=== PATIENT | male | born 1955 | race Hispanic/Latino ===

== ENCOUNTER 2018-06-25 11:48 | Emergency (ER) | payer OTHER ==
[~2018-06-25] VITALS: Ht 172.7 cm; Wt 103.4 kg
[~2018-06-25 11:48] MED LIST: ADULT ASPIRIN81 MG PO; ALLOPURINOL100 MG PO; FENOFIBRATE145 MG PO; FLOMAX0.4 MG PO; GLIMEPIRIDE2 MG PO; GLUCOPHAGE XL500 MG PO; HYDROCODON-ACE1 EA11 PO; LISINOPRIL-HCT1 EAC3 PO; MIRALAX17 GM; PEPCID40 MG PO; POTASSIUM CHLO10 MEQ PO; PRAVASTATIN SOD80 MG PO; PROTONIX40 MG/ML; RANITIDINE HCL75 MG PO; VICODIN ES TAB1 EACH; VISCOUS LIDOCAINE PO; Z.0.ALLOPURINOL300 M PO; Z.0.CELEBREX100 MG PO; Z.0.COLACE100 MG PO; Z.0.GLYBURIDE2.5 MG PO; Z.0.JANUVIA100 MG PO; Z.0.LASIX40 MG PO; Z.0.PRAVACHOL40 MG PO; Z.1.POTASSIUM CHLO10 PO
[2018-06-25 12:11] LABS: BASOPHILS % 0.4 % (0.0-1.0); EOSINOPHILS # (AUTO) 0.2 (0.0-0.4); EOSINOPHILS % 2.7 % (0.0-6.0); HEMATOCRIT 45.4 % (38.2-49.6); HEMOGLOBIN 15.2 g/dL (14.0-18.0); LYMPHOCYTES # (AUTO) 2.2 (1.0-3.2); LYMPHOCYTES % 25.9 % (18.0-39.1); MEAN CORPUSCULAR HEMOGLOBIN 26.9 pg (28-32); MEAN CORPUSCULAR HGB CONC 33.5 g/dL (31-35); MEAN CORPUSCULAR VOLUME 80.4 fL (81-99); MONOCYTES # (AUTO) 0.7 (0.2-0.8); MONOCYTES % 7.7 % (4.4-11.3); NEUTROPHILS # (AUTO) 5.3 (2.1-6.9); NEUTROPHILS % 63.1 % (38.7-80.0); PLATELET COUNT 161 x10e3/uL (140-360); RED BLOOD COUNT 5.65 x10e6/uL (4.3-5.7); RED CELL DISTRIBUTION WIDTH 14.1 % (11.7-14.4)
[2018-06-25 12:25] LABS: INR 1.43; PROTHROMBIN TIME 18.6 seconds (11.9-14.5)
[2018-06-25 12:26] LABS: PARTIAL THROMBOPLASTIN TIME 41.1 seconds (23.8-35.5)
[2018-06-25 12:30] LABS: ANION GAP 18.4 mmol/L (8-16); CALCIUM 9.9 mg/dL (8.4-10.2); CREATININE, SERUM 1.93 mg/dL (0.72-1.25); POTASSIUM 4.4 mmol/L (3.5-5.1)
[2018-06-25] MEDS ORDERED: SODIUM CHLORIDE 0.9% 1000ML 1,000 ML IV SCH (13:00)
[2018-06-25] MEDS ORDERED: INSULIN REGULAR, HUMAN 100 UNIT/1 ML 3ML VIAL SQ ONE (13:00)
[2018-06-25] MEDS ORDERED: HYDROMORPHONE 1MG/1ML INJ IV STA (13:05)
[2018-06-25 14:51] VITALS: BP 117/78
== END 2018-06-25 15:05 | disposition home or self-care (01) ==
LOC: ER 11:48
DX: M79.661 Pain in right lower leg (principal); I10 Essential (primary) hypertension; E11.9 Type 2 diabetes mellitus without complications; M10.9 Gout, unspecified; G89.29 Other chronic pain
CPT/HCPCS: 36415; 80048; 82948; 84550; 85025; 85610; 85730; 93971; 99284; J1170; J7030

== ENCOUNTER 2019-12-01 02:43 | Emergency (ER) | payer MEDICARE, OTHER ==
[~2019-12-01] VITALS: Ht 170.2 cm; Wt 96.2 kg
[2019-12-01] MEDS ORDERED: DIATRIZOATE MEGL/DIATRIZOA SOD 30 ML BTL PO ONE (03:03)
[2019-12-01 03:43] LABS: BASOPHILS % 0.3 % (0.0-1.0); EOSINOPHILS # (AUTO) 0.2 (0.0-0.4); EOSINOPHILS % 2.9 % (0.0-6.0); HEMATOCRIT 44.5 % (38.2-49.6); HEMOGLOBIN 14.3 g/dL (14.0-18.0); LYMPHOCYTES # (AUTO) 1.9 (1.0-3.2); LYMPHOCYTES % 26.4 % (18.0-39.1); MEAN CORPUSCULAR HEMOGLOBIN 26.7 pg (28-32); MEAN CORPUSCULAR HGB CONC 32.1 g/dL (31-35); MEAN CORPUSCULAR VOLUME 83.2 fL (81-99); MONOCYTES # (AUTO) 0.6 (0.2-0.8); MONOCYTES % 8.1 % (4.4-11.3); NEUTROPHILS # (AUTO) 4.4 (2.1-6.9); PLATELET COUNT 122 x10e3/uL (140-360); RED BLOOD COUNT 5.35 x10e6/uL (4.3-5.7); RED CELL DISTRIBUTION WIDTH 13.5 % (11.7-14.4)
[2019-12-01 04:05] LABS: ALBUMIN 3.9 g/dL (3.5-5.0); ALBUMIN/GLOBULIN RATIO 1.2 (0.8-2.0); ANION GAP 11.8 mmol/L (8-16); CALCIUM 9.2 mg/dL (8.4-10.2); CREATININE, SERUM 1.33 mg/dL (0.72-1.25); POTASSIUM 3.8 mmol/L (3.5-5.1)
[2019-12-01] MEDS ORDERED: SODIUM CHLORIDE 0.9% 500ML 500 ML ONE (04:29)
[2019-12-01] MEDS ORDERED: SODIUM CHLORIDE 0.9% 50ML 50 ML ONE (04:34)
[2019-12-01] MEDS ORDERED: IOPAMIDOL 370 MG/ML 200 ML INFUS..BTL INJ ONE (04:34)
[2019-12-01] MEDS ORDERED: SODIUM CHLORIDE 0.9% 500ML 500 ML IV ONE (04:45)
--- NOTE | 2019-12-01 05:38 | Diagnostic Imaging Report ---
EXAMINATION: CT of the abdomen and pelvis with contrast. TECHNIQUE: Spiral CT images of the abdomen and pelvis were performed from the lung bases to the lesser trochanters after the intravenous administration of 100 cc of Isovue 370 and the oral administration of Gastrografin. Coronal and sagittal reformatted images were obtained. COMPARISON: None. CLINICAL HISTORY:Ventral hernia DISCUSSION: ABDOMEN/PELVIS: LOWER THORAX:Lung bases are unremarkable. No pleural effusion. Trace pericardial effusion. HEPATOBILIARY: Subcentimeter hypoattenuating lesions in segment 3 are too small to further characterize but likely represent small cysts. No additional focal hepatic lesion or intrahepatic biliary ductal dilatation. The gallbladder is unremarkable. SPLEEN: No splenomegaly or focal splenic lesion. PANCREAS: No focal masses or ductal dilatation. ADRENALS: 1.3 cm left adrenal nodule average internal attenuation 65 Hounsfield units. No right adrenal nodule. KIDNEYS/URETERS: Subcentimeter hypoattenuating lesions within both kidneys are too small to further characterize but likely represent small cysts. Nonspecific perinephric fat stranding. No calculi or hydronephrosis. PELVIC ORGANS/BLADDER: Urinary bladder is unremarkable. Coarse prostatic calcifications. PERITONEUM/RETROPERITONEUM: No ascites or pneumoperitoneum. LYMPH NODES: No pelvic sidewall, retroperitoneal, or mesenteric lymphadenopathy. VESSELS: Atherosclerotic calcification of the abdominal aorta and major branch vessels without aneurysmal dilatation. Portal vein, splenic vein, and central superior mesenteric vein are patent. GI TRACT: Multiple diverticula scattered along the sigmoid colon without wall thickening or inflammatory change. Large bowel shows no distention or wall thickening. Normal appendix. No small bowel dilatation to suggest obstruction. BONES AND SOFT TISSUE: Postsurgical changes of the lumbar spine. No osseous destructive lesions. Degenerative disc changes and facet arthropathy of the lumbar spine. Small fat-containing left inguinal hernia. Otherwise no focal soft tissue abnormalities. IMPRESSION: No acute intra-abdominal or pelvic CT abnormalities. Small fat-containing left inguinal hernia. No ventral abdominal wall hernia per clinical query. Incidental findings include atherosclerotic vascular disease and large bowel diverticulosis without findings of diverticulitis. 1.3 cm left adrenal nodule is incompletely characterized on this single phase examination but is statistically likely to represent a benign adenoma. Definitive characterization with nonemergent CT or MRI of the abdomen with and without contrast (adrenal mass protocol) is suggested. Signed by: Dr. Ari Alvares M.D. on 12/01/2019 5:35 AM
[2019-12-01 06:12] VITALS: BP 150/91
== END 2019-12-01 06:14 | disposition home or self-care (01) ==
LOC: ER 02:43
DX: R10.33 Periumbilical pain (principal); E11.22 Type 2 diabetes mellitus with diabetic chronic kidney disease; I12.9 Hypertensive chronic kidney disease with stage 1 through stage 4 chronic kidney disease, or unspecified chronic kidney disease; N18.9 Chronic kidney disease, unspecified; Z79.84 Long term (current) use of oral hypoglycemic drugs; Z79.82 Long term (current) use of aspirin
CPT/HCPCS: 36415; 74177; 80053; 83690; 85025; 99284; J7040; Q9967

== ENCOUNTER 2023-01-18 12:59 | Inpatient (IN) | payer MEDICARE ==
[~2023-01-18] VITALS: Ht 170.2 cm; Wt 89.8 kg
[2023-01-18] MEDS ORDERED: CEFTRIAXONE 1 GM VIAL IV SCH (13:30)
[2023-01-18] MEDS ORDERED: ACETAMINOPHEN 325 MG TAB PO ONE (13:30)
[2023-01-18] MEDS ORDERED: SODIUM CHLORIDE 0.9% 1000ML 2,720 ML IV ONE (13:30)
[2023-01-18 13:49] LABS: BASOPHILS % 0.3 % (0.0-1.0); HEMATOCRIT 46.7 % (38.2-49.6); HEMOGLOBIN 15.4 g/dL (14.0-18.0); LYMPHOCYTES # (AUTO) 0.5 (1.0-3.2); LYMPHOCYTES % 5.1 % (18.0-39.1); MEAN CORPUSCULAR VOLUME 75.7 fL (81-99); MONOCYTES # (AUTO) 0.6 (0.2-0.8); MONOCYTES % 6.6 % (4.4-11.3); NEUTROPHILS # (AUTO) 7.8 (2.1-6.9); NEUTROPHILS % 87.4 % (38.7-80.0); PLATELET COUNT 90 x10e3/uL (140-360); RED BLOOD COUNT 6.17 x10e6/uL (4.3-5.7)
[2023-01-18 13:59] LABS: INR 1.37; PARTIAL THROMBOPLASTIN TIME 42.7 seconds (23.8-35.5); PROTHROMBIN TIME 17.4 seconds (11.9-14.5)
[2023-01-18 14:08] LABS: ALBUMIN 3.4 g/dL (3.5-5.0); ALBUMIN/GLOBULIN RATIO 0.8 (0.8-2.0); ANION GAP 21.8 mmol/L (8-16); CALCIUM 9.6 mg/dL (8.4-10.2); CREATININE, SERUM 1.68 mg/dL (0.72-1.25); POTASSIUM 3.8 mmol/L (3.5-5.1)
[2023-01-18 14:53] LABS: CLARITY,URINE CLOUDY (CLEAR); COLOR,URINE YELLOW (YELLOW); LEUKOCYTE ESTERASE ,URINE NEGATIVE (NEGATIVE); NITRITE,URINE NEGATIVE (NEGATIVE); PROTEIN,URINE DIPSTICK >=300 (NEGATIVE)
[2023-01-18 14:54] LABS: KETONES,URINE 2+ (NEGATIVE); URINE UROBILINOGEN 0.2 mg/dL (0.2 - 1)
[2023-01-18 14:56] LABS: BACTERIA,URINE FEW /HPF; EPITHELIAL CELLS,URINE MANY /LPF; RBC,URINE >50 /HPF (0-5)
[2023-01-18] MEDS ORDERED: Vancomycin IV 1 GM in SODIUM CHLORIDE 0.9% 250ML 250 ML IV STA (15:08)
[2023-01-18] MEDS ORDERED: ONDANSETRON HCL INJ 2MG/ML 2ML 2 MG/ML VIAL IV PRN (15:15)
[2023-01-18] MEDS: SODIUM CHLORIDE 0.9% 1000ML 1,000 ML IV SCH (15:53)
[2023-01-18 17:23] VITALS: BP 127/73
[2023-01-18 17:45] VITALS: BP 127/73
[2023-01-18 17:46] VITALS: BP 127/73
[2023-01-18] MEDS ORDERED: COLCHICINE0.6 M1 PO (17:59)
[2023-01-18] MEDS ORDERED: JARDIANCE10 MG PO (17:59)
[2023-01-18] MEDS ORDERED: FLUOCINONIDE-E15 GM TOP (17:59)
[2023-01-18] MEDS ORDERED: PREDNISONE10 MG PO (17:59)
[2023-01-18] MEDS ORDERED: LINZESS290 MCG PO (17:59)
[2023-01-18] MEDS ORDERED: DEPO-MEDRO80 MG/1 ML IM (17:59)
[2023-01-18] MEDS ORDERED: TOPROL XL50 MG PO (17:59)
[2023-01-18] MEDS ORDERED: TRIAMCINOLONE A15 G1 TOP (17:59)
[2023-01-18] MEDS ORDERED: DECARA1250 MCG PO (17:59)
[2023-01-18] MEDS ORDERED: LISINOPRIL20 MG PO (17:59)
[2023-01-18] MEDS ORDERED: TOUJEO MAX300 UNIT/1 SQ (17:59)
[2023-01-18] MEDS ORDERED: VALIUM10 MG PO (17:59)
[2023-01-18] MEDS ORDERED: VITAMIN B-121000 MCG PO (17:59)
[2023-01-18] MEDS ORDERED: ELIQUIS5 MG PO (17:59)
[2023-01-18] MEDS ORDERED: DESONIDE15 GM TOP (17:59)
[2023-01-18] MEDS ORDERED: DEXTROSE 50% SYRINGE 50 ML IV PRN (18:00)
[2023-01-18] MEDS ORDERED: OZEMPIC0.25 MG/0. SC ×2 (18:21→18:22)
[2023-01-18 20:00] VITALS: BP 156/92
[2023-01-18 20:45] VITALS: BP 156/92
[2023-01-18] MEDS ORDERED: DIAZEPAM 5 MG TAB PO PRN (21:30)
[2023-01-18] MEDS ORDERED: HYDROCODONE/APAP 5MG-325MG TAB PO PRN (21:30)
[2023-01-18] MEDS ORDERED: FUROSEMIDE 40 MG TAB PO PRN (21:30)
[2023-01-18] MEDS ORDERED: APIXABAN 5 MG TABLET PO ONE (22:15)
[2023-01-18] MEDS ORDERED: LISINOPRIL 20 MG TAB PO ONE (22:15)
[2023-01-18] MEDS ORDERED: METOPROLOL SUCCINATE 50 MG TAB XL PO ONE (22:15)
[2023-01-18] MEDS: HYDROCODONE/APAP 10MG-325MG TAB PO PRN (23:00)
[2023-01-18] MEDS ORDERED: MAGNESIUM HYDROXIDE 30 ML UDC PO PRN (23:45)
[2023-01-18] MEDS ORDERED: BISACODYL 10 MG SUPP PR PRN (23:45)
[2023-01-18] MEDS ORDERED: HYDRALAZINE HCL 20 MG/ML VIAL IV PRN (23:45)
[2023-01-18] MEDS ORDERED: ACETAMINOPHEN 325 MG TAB PO PRN (23:45)
[2023-01-18] MEDS ORDERED: SENNA-S TABLET PO PRN (23:45)
[2023-01-19] VITALS (7 sets, daily range): BP systolic 109–138; BP diastolic 76–97
[2023-01-19] MEDS ORDERED: HYDROCODONE/APAP 5MG-325MG TAB PO SCH
[2023-01-19] MEDS: SODIUM CHLORIDE 0.9% 1000ML 1,000 ML IV SCH ×2 (00:14→12:32)
[2023-01-19] MEDS: METOPROLOL TARTRATE INJ 1 MG/ML VIAL IV PRN ×4 (00:15→07:47)
[2023-01-19 05:21] LABS: BASOPHILS % 0.4 % (0.0-1.0); HEMATOCRIT 42.1 % (38.2-49.6); HEMOGLOBIN 13.6 g/dL (14.0-18.0); LYMPHOCYTES # (AUTO) 0.4 (1.0-3.2); LYMPHOCYTES % 9.5 % (18.0-39.1); MEAN CORPUSCULAR HEMOGLOBIN 24.7 pg (28-32); MEAN CORPUSCULAR HGB CONC 32.3 g/dL (31-35); MEAN CORPUSCULAR VOLUME 76.4 fL (81-99); MONOCYTES # (AUTO) 0.4 (0.2-0.8); MONOCYTES % 9.5 % (4.4-11.3); NEUTROPHILS # (AUTO) 3.7 (2.1-6.9); PLATELET COUNT 71 x10e3/uL (140-360); RED BLOOD COUNT 5.51 x10e6/uL (4.3-5.7); RED CELL DISTRIBUTION WIDTH 17.4 % (11.7-14.4)
[2023-01-19 05:50] LABS: ALBUMIN 2.5 g/dL (3.5-5.0); ALBUMIN/GLOBULIN RATIO 0.6 (0.8-2.0); ANION GAP 15.7 mmol/L (8-16); CALCIUM 8.6 mg/dL (8.4-10.2); CREATININE, SERUM 1.12 mg/dL (0.72-1.25); POTASSIUM 3.7 mmol/L (3.5-5.1)
[2023-01-19] MEDS: METOPROLOL TARTRATE 50 MG TAB PO SCH ×3 (06:36→21:01)
[2023-01-19] MEDS ORDERED: LINACLOTIDE 145 MCG CAPSULE PO SCH (07:30)
[2023-01-19] MEDS: ALLOPURINOL 100 MG TAB PO SCH (07:52)
[2023-01-19] MEDS: APIXAB 2.5 MG TABLET PO SCH ×2 (07:52→16:47)
[2023-01-19] MEDS: CYANOCOBALAMIN 1,000 MCG TAB PO SCH (07:52)
[2023-01-19] MEDS: LISINOPRIL 20 MG TAB PO SCH (07:53)
[2023-01-19] MEDS: HYDROCODONE/APAP 10MG-325MG TAB PO PRN ×2 (07:56→16:53)
[2023-01-19] MEDS ORDERED: GLIMEPIRIDE 2 MG TAB PO SCH (09:00)
[2023-01-19] MEDS ORDERED: APIXABAN 5 MG TABLET PO SCH (09:00)
[2023-01-19] MEDS ORDERED: METHYLPREDNISOLONE ACETATE 80 MG/ML VIAL IM SCH (09:00)
[2023-01-19] MEDS ORDERED: COLCHICINE 0.6 MG TAB PO SCH (09:00)
[2023-01-19] MEDS ORDERED: METOPROLOL SUCCINATE 50 MG TAB XL PO SCH (09:00)
[2023-01-19] MEDS ORDERED: ASPIRIN 81 MG CHEW TAB PO SCH (09:00)
[2023-01-19] MEDS ORDERED: EMPAGLIFLOZIN 10 MG TABLET PO SCH (09:00)
[2023-01-19] MEDS: INSULIN LISPRO 100 UNIT/1 ML 3ML VIAL SQ SCH ×4 (09:37→21:00)
[2023-01-19] MEDS: CEFTRIAXONE 1 GM VIAL IV SCH ×2 (11:24→21:01)
[2023-01-19] MEDS ORDERED: VANCOMYCIN HCL 125 MG CAPSULE PO SCH (12:00)
[2023-01-19] MEDS: OYST-CAL-D 500MG TABLET PO SCH (12:32)
[2023-01-19] MEDS: TAMSULOSIN HCL 0.4 MG CAP PO SCH (20:59)
[2023-01-19] MEDS: CHOLESTYRAMINE 4 GM PACKET PO PRN (21:12)
[2023-01-20] VITALS (7 sets, daily range): BP systolic 137–154; BP diastolic 89–93
[2023-01-20] MEDS: SODIUM CHLORIDE 0.9% 1000ML 1,000 ML IV SCH ×3 (00:33→18:11)
[2023-01-20] MEDS: CHOLESTYRAMINE 4 GM PACKET PO PRN (04:49)
[2023-01-20] MEDS: HYDROCODONE/APAP 10MG-325MG TAB PO PRN ×3 (04:49→20:15)
[2023-01-20] MEDS: METOPROLOL TARTRATE 50 MG TAB PO SCH ×3 (05:24→22:00)
[2023-01-20 05:36] LABS: BASOPHILS % 0.4 % (0.0-1.0); EOSINOPHILS # (AUTO) 0.1 (0.0-0.4); EOSINOPHILS % 2.9 % (0.0-6.0); HEMATOCRIT 42.4 % (38.2-49.6); HEMOGLOBIN 13.6 g/dL (14.0-18.0); LYMPHOCYTES # (AUTO) 0.8 (1.0-3.2); LYMPHOCYTES % 18.8 % (18.0-39.1); MEAN CORPUSCULAR HEMOGLOBIN 24.7 pg (28-32); MEAN CORPUSCULAR HGB CONC 32.1 g/dL (31-35); MEAN CORPUSCULAR VOLUME 77.1 fL (81-99); MONOCYTES # (AUTO) 0.7 (0.2-0.8); MONOCYTES % 16.5 % (4.4-11.3); NEUTROPHILS # (AUTO) 2.7 (2.1-6.9); PLATELET COUNT 73 x10e3/uL (140-360)
[2023-01-20 05:52] LABS: ALBUMIN 2.4 g/dL (3.5-5.0); ALBUMIN/GLOBULIN RATIO 0.6 (0.8-2.0); ANION GAP 15.8 mmol/L (8-16); POTASSIUM 3.8 mmol/L (3.5-5.1)
[2023-01-20] MEDS: INSULIN LISPRO 100 UNIT/1 ML 3ML VIAL SQ SCH ×4 (07:30→21:00)
[2023-01-20] MEDS: OYST-CAL-D 500MG TABLET PO SCH (09:00)
[2023-01-20] MEDS: LISINOPRIL 20 MG TAB PO SCH (09:48)
[2023-01-20] MEDS: CYANOCOBALAMIN 1,000 MCG TAB PO SCH (09:48)
[2023-01-20] MEDS: APIXAB 2.5 MG TABLET PO SCH ×2 (09:48→18:11)
[2023-01-20] MEDS: ALLOPURINOL 100 MG TAB PO SCH (09:49)
[2023-01-20] MEDS: CEFTRIAXONE 1 GM VIAL IV SCH (09:49)
[2023-01-20] MEDS ORDERED: ONDANSETRON HCL 4 MG ORAL DISINTEGRATING TAB PO PRN (11:45)
[2023-01-20 14:02] LABS: ANION GAP 14.5 mmol/L (8-16); CALCIUM 8.3 mg/dL (8.4-10.2); POTASSIUM 3.5 mmol/L (3.5-5.1)
[2023-01-20] MEDS: CEPHALEXIN 500 MG CAP PO SCH (18:12)
[2023-01-20] MEDS: TAMSULOSIN HCL 0.4 MG CAP PO SCH (20:14)
[2023-01-21 05:14] LABS: BASOPHILS % 0.4 % (0.0-1.0); EOSINOPHILS # (AUTO) 0.2 (0.0-0.4); EOSINOPHILS % 4.2 % (0.0-6.0); HEMATOCRIT 42.5 % (38.2-49.6); HEMOGLOBIN 13.8 g/dL (14.0-18.0); LYMPHOCYTES # (AUTO) 1.2 (1.0-3.2); LYMPHOCYTES % 25.1 % (18.0-39.1); MEAN CORPUSCULAR HEMOGLOBIN 24.5 pg (28-32); MEAN CORPUSCULAR HGB CONC 32.5 g/dL (31-35); MEAN CORPUSCULAR VOLUME 75.4 fL (81-99); MONOCYTES # (AUTO) 0.5 (0.2-0.8); MONOCYTES % 9.7 % (4.4-11.3); NEUTROPHILS # (AUTO) 2.9 (2.1-6.9); NEUTROPHILS % 60.2 % (38.7-80.0); PLATELET COUNT 90 x10e3/uL (140-360); RED BLOOD COUNT 5.64 x10e6/uL (4.3-5.7); RED CELL DISTRIBUTION WIDTH 16.8 % (11.7-14.4)
[2023-01-21 05:31] LABS: ANION GAP 14.7 mmol/L (8-16); CALCIUM 9.2 mg/dL (8.4-10.2); CREATININE, SERUM 0.87 mg/dL (0.72-1.25); POTASSIUM 3.7 mmol/L (3.5-5.1)
[2023-01-21] MEDS: CEPHALEXIN 500 MG CAP PO SCH ×2 (05:43)
[2023-01-21] MEDS: HYDROCODONE/APAP 10MG-325MG TAB PO PRN (05:43)
[2023-01-21] MEDS: METOPROLOL TARTRATE 50 MG TAB PO SCH (06:03)
[2023-01-21 07:00] VITALS: BP 135/86
[2023-01-21] MEDS: INSULIN LISPRO 100 UNIT/1 ML 3ML VIAL SQ SCH (07:30)
[2023-01-21 07:46] VITALS: BP 146/90
[2023-01-21] MEDS: OYST-CAL-D 500MG TABLET PO SCH (10:05)
[2023-01-21] MEDS: APIXAB 2.5 MG TABLET PO SCH (10:05)
[2023-01-21] MEDS: CYANOCOBALAMIN 1,000 MCG TAB PO SCH (10:05)
[2023-01-21] MEDS: ALLOPURINOL 100 MG TAB PO SCH (10:05)
[2023-01-21] MEDS: LISINOPRIL 20 MG TAB PO SCH (10:06)
== END 2023-01-21 11:14 | disposition home or self-care (01) | DRG 872 ==
LOC: ER 13:22 → ERHOLD 15:11 → MED/SURG 16:52
PROVIDERS: ADMIT Internal Medicine; ATTEND Internal Medicine
DX: A41.51 Sepsis due to Escherichia coli [E. coli] (principal); I48.19 Other persistent atrial fibrillation; Z16.19 Resistance to other specified beta lactam antibiotics; D69.6 Thrombocytopenia, unspecified; Z79.01 Long term (current) use of anticoagulants; Z20.822 Contact with and (suspected) exposure to COVID-19; F41.9 Anxiety disorder, unspecified; M1A.9XX1 Chronic gout, unspecified, with tophus (tophi); E11.9 Type 2 diabetes mellitus without complications; Z79.4 Long term (current) use of insulin; N40.0 Benign prostatic hyperplasia without lower urinary tract symptoms; N40.1 Benign prostatic hyperplasia with lower urinary tract symptoms; R33.8 Other retention of urine; R35.1 Nocturia; R80.9 Proteinuria, unspecified; K76.0 Fatty (change of) liver, not elsewhere classified; E78.5 Hyperlipidemia, unspecified; E11.65 Type 2 diabetes mellitus with hyperglycemia; E88.09 Other disorders of plasma-protein metabolism, not elsewhere classified; E66.09 Other obesity due to excess calories; Z68.31 Body mass index [BMI] 31.0-31.9, adult; N32.9 Bladder disorder, unspecified; R91.8 Other nonspecific abnormal finding of lung field; E27.9 Disorder of adrenal gland, unspecified
CPT/HCPCS: 0223U; 36415; 51700; 71045; 71250; 74176; 76705; 80048; 80053; 81001; 82784; 82948; 83605; 83735; 85025; 85610; 85730; 87040; 87086; 87186; 87324; 87400; 87449; 93005; 93306; 96361; 99284; J0696; J2543; J7030; J7050